=== PATIENT | female | born 1975 | race African-American/Black ===

== ENCOUNTER 2016-08-12 00:26 | Inpatient (IN) | payer MEDICAID, OTHER ==
[~2016-08-12] VITALS: Ht 165.1 cm; Wt 113.4 kg
[2016-08-12] MEDS ORDERED: SODIUM CHLORIDE 0.9% 1,000 ML IV ONE (02:10)
[2016-08-12] MEDS ORDERED: ONDANSETRON HCL 4MG/2ML VIAL IV STA (02:10)
[2016-08-12] MEDS ORDERED: MORPHINE SULFATE 4 MG/ML CPJ (NOT FOR IM USE) IV STA (02:10)
[2016-08-12 03:13] LABS: BASOPHILS % 0.5 % (0.0-2.0); EOSINOPHILS % 0.7 % (0.0-5.0); HEMOGLOBIN. 12.7 g/dL (12.0-16.0); LYMPHOCYTES % 19.7 % (20.0-50.0); MEAN CORPUSCULAR VOLUME 73.3 fL (81.0-99.0); MEAN PLATELET VOLUME 9.4 fl (7.4-10.4); MONOCYTES % 4.2 % (2.0-8.0); NEUTROPHILS % 74.9 % (40.0-76.0); PLATELET 202 x1000/uL (130-400); RED BLOOD CELL COUNT 5.32 mill/uL (4.2-5.4); RED CELL DISTRIBUTION WIDTH 15.9 % (11.6-14.6)
[2016-08-12 03:16] LABS: PROTHROMBIN TIME 10.8 sec
[2016-08-12 03:19] LABS: HCG SCREEN NEGATIVE
[2016-08-12 03:25] LABS: CARBON DIOXIDE 27 mEq/L (21-32); CHLORIDE 110 mEq/L (98-107)
[2016-08-12 04:25] LABS: CLARITY URINE TURBID (CLEAR); COLOR URINE ORANGE (YELLOW); KETONES URINE NEGATIVE (NEGATIVE); LEUKOCYTE ESTERASE URINE 1+ (NEGATIVE); NITRITE URINE NEGATIVE (NEGATIVE); OCCULT BLOOD URINE 3+ (NEGATIVE); PROTEIN URINE 1+ (NEGATIVE); SPECIFIC GRAVITY URINE 1.027 (1.005-1.030)
[2016-08-12] MEDS ORDERED: MORPHINE SULFATE 4 MG/ML CPJ (NOT FOR IM USE) IV ONE (04:45)
[2016-08-12] MEDS ORDERED: METRONIDAZOLE 500 MG PREMIX 100 ML IV ONE (05:00)
[2016-08-12] MEDS ORDERED: CEFTRIAXONE 2 G PREMIX 50 ML IV ONE (05:00)
[2016-08-12] MEDS ORDERED: TAMSULOSIN HCL 0.4MG SR CAPSULE PO ONE (06:00)
[2016-08-12] MEDS ORDERED: NAPR-679 (09:40)
[2016-08-12] MEDS ORDERED: MORPHINE SULFATE 4 MG/ML CPJ (NOT FOR IM USE) IV SCH (10:30)
[2016-08-12] MEDS ORDERED: MORPHINE SULFATE 4 MG/ML CPJ (NOT FOR IM USE) IV PRN ×2 (10:45→12:00)
[2016-08-12] MEDS ORDERED: IPRATROPIUM/ALBUTEROL 0.5-3(2.5)MG/3ML NEB INH PRN (11:15)
[2016-08-12] MEDS ORDERED: ACETAMINOPHEN 325MG TABLET PO PRN (11:15)
[2016-08-12] MEDS ORDERED: CLONIDINE 0.1MG TABLET PO PRN (11:15)
[2016-08-12] MEDS ORDERED: ONDANSETRON HCL 4MG/2ML VIAL IV PRN (11:15)
[2016-08-12] MEDS ORDERED: DIPHENHYDRAMINE 50MG/ML VIAL IV PRN (11:15)
[2016-08-12] MEDS ORDERED: SODIUM CHLORIDE 0.9% 10ML VIAL ONE (12:40)
[2016-08-12] MEDS ORDERED: IOHEXOL-300 100 ML BOTTLE ONE (12:40)
[2016-08-12] MEDS: LEVOFLOXACIN 500MG PREMIX 100 ML IV SCH ×2 (13:00→15:18)
[2016-08-12] MEDS: METRONIDAZOLE 500 MG PREMIX 100 ML IV SCH ×2 (14:00→22:00)
[2016-08-12] MEDS ORDERED: DOCU-150 PO (15:54)
[2016-08-12] MEDS ORDERED: CIPR-213 PO (15:54)
[2016-08-12] MEDS ORDERED: METR500T4 PO (15:55)
[2016-08-12] MEDS ORDERED: METRONIDAZOLE 500MG TABLET PO NR (20:00)
[2016-08-12] MEDS ORDERED: LEVOFLOXACIN 500MG TABLET PO NR (21:00)
[2016-08-13] MEDS: METRONIDAZOLE 500 MG PREMIX 100 ML IV SCH (05:29)
[2016-08-13 06:08] LABS: BASOPHILS % 0.4 % (0.0-2.0); EOSINOPHILS % 1.8 % (0.0-5.0); HEMATOCRIT. 36.7 % (36.0-48.0); HEMOGLOBIN. 11.9 g/dL (12.0-16.0); LYMPHOCYTES % 33.9 % (20.0-50.0); MEAN CORPUSCULAR HEMOGLOBIN 23.8 pg (28.0-32.0); MEAN CORPUSCULAR VOLUME 73.4 fL (81.0-99.0); MEAN PLATELET VOLUME 9.6 fl (7.4-10.4); MONOCYTES % 4.5 % (2.0-8.0); NEUTROPHILS % 59.4 % (40.0-76.0); PLATELET 171 x1000/uL (130-400); RED BLOOD CELL COUNT 4.99 mill/uL (4.2-5.4); RED CELL DISTRIBUTION WIDTH 15.6 % (11.6-14.6)
[2016-08-13] MEDS ORDERED: METRONIDAZOLE 500MG TABLET PO SCH (06:30)
[2016-08-13 06:40] LABS: CARBON DIOXIDE 23 mEq/L (21-32); CHLORIDE 110 mEq/L (98-107)
[2016-08-13 06:42] LABS: HDL CHOLESTEROL 42 mg/dL (40-59); LDL CHOLESTEROL 61 mg/dL (5-100)
[2016-08-13] MEDS: HYDROCODONE/ACETAMINOPHEN 5/325MG TABLET PO PRN ×2 (07:38→12:18)
[2016-08-13] MEDS ORDERED: LEVOFLOXACIN 500MG TABLET PO SCH (11:00)
[2016-08-13 14:04] VITALS: BP 127/80
== END 2016-08-13 15:55 | disposition home or self-care (01) | DRG 244 ==
LOC: ER 00:26 → 6EST 05:13 → EDBEDREQTM 05:17 → EDBEDREQ 05:17 → ENRESERV 07:44
PROVIDERS: ADMIT Internal Medicine; ATTEND Internal Medicine
DX: K57.32 Diverticulitis of large intestine without perforation or abscess without bleeding (principal); N13.30 Unspecified hydronephrosis; N39.0 Urinary tract infection, site not specified; N23 Unspecified renal colic; Z98.84 Bariatric surgery status
CPT/HCPCS: 36415; 74177; 80053; 80061; 81001; 83605; 83690; 84703; 85025; 85610; 87040; 87086; 93005; 96361; 96365; 96367; 96375; 96376; 99285; A4216; C1893; J0696; J1956; J2270; J2405; J3490; J7030; J7040; Q9967

== ENCOUNTER 2016-11-20 09:00 | Inpatient (IN) | payer MEDICAID ==
[~2016-11-20] VITALS: Ht 165.1 cm; Wt 112.9 kg
[~2016-11-20 09:00] MED LIST: CIPR-213 PO; DOCU-150 PO; METR500T4 PO; NAPR-679
[2016-11-20] MEDS ORDERED: LACTATED RINGERS 1,000 ML IV SCH (10:20)
[2016-11-20] MEDS ORDERED: HYDR-4001 PO (10:31)
[2016-11-20 10:58] LABS: CLARITY URINE CLOUDY (CLEAR); COLOR URINE YELLOW (YELLOW); GLUCOSE URINE NEGATIVE (NEGATIVE); KETONES URINE NEGATIVE (NEGATIVE); LEUKOCYTE ESTERASE URINE NEGATIVE (NEGATIVE); NITRITE URINE NEGATIVE (NEGATIVE); OCCULT BLOOD URINE NEGATIVE (NEGATIVE); PROTEIN URINE NEGATIVE (NEGATIVE); SPECIFIC GRAVITY URINE 1.019 (1.005-1.030); UROBILINOGEN URINE 0.2 E.U./dL (0.2-1.0)
[2016-11-20] MEDS ORDERED: LIDOCAINE HCL 1% 20ML VIAL (Pyxis) INJ ONE ×2 (11:01→11:19)
[2016-11-20] MEDS ORDERED: BUPIVACAINE HCL/PF 0.5% (5MG/ML) 10ML ONE (11:01)
[2016-11-20 11:02] LABS: UCG SCREEN NEGATIVE
[2016-11-20 11:06] LABS: INR 1.1; PARTIAL THROMBOPLASTIN TIME 27.5 sec (23.4-31.0); PROTHROMBIN TIME 11.3 sec (9.4-11.6)
[2016-11-20] MEDS ORDERED: SUCCINYLCHOLINE CHLORIDE 200MG/10ML VIAL IV ONE (11:19)
[2016-11-20] MEDS ORDERED: PROPOFOL 200MG/20ML VIAL IV ONE ×2 (11:19→16:32)
[2016-11-20] MEDS ORDERED: FENTANYL CITRATE/PF 50MCG/ML 2ML VIAL ONE ×2 (11:20→12:46)
[2016-11-20] MEDS ORDERED: MIDAZOLAM HCL 2 MG/2 ML VIAL ONE (11:20)
[2016-11-20] MEDS ORDERED: CEFOXITIN SODIUM 2 G in DEXT 5% WATER 100 ML IV NR (11:33)
[2016-11-20] MEDS ORDERED: ROCURONIUM BROMIDE 10MG/ML VIAL 5ML IV ONE (12:23)
[2016-11-20] MEDS ORDERED: MEPERIDINE HCL/PF 25MG/ML CPJ IV PRN (12:45)
[2016-11-20] MEDS ORDERED: LABETALOL HCL 20MG/4ML CARPUJECT IV PRN (12:45)
[2016-11-20] MEDS ORDERED: ONDANSETRON HCL 4MG/2ML VIAL IV PRN (12:45)
[2016-11-20] MEDS ORDERED: HYDROMORPHONE HCL/PF 2MG/ML (OR) ONE (12:53)
[2016-11-20] MEDS ORDERED: MEDR150D9 IM (13:27)
[2016-11-20] MEDS ORDERED: SKIN ADHESIVE 0.7 GM EA TOP ONE (13:29)
[2016-11-20] MEDS ORDERED: METHYLENE BLUE 50 MG/10 ML AMP IV ONE (13:52)
[2016-11-20] MEDS ORDERED: NORMAL SALINE 0.9% 10 ML SYR ONE ×2 (15:47→15:52)
[2016-11-20] MEDS ORDERED: BACITRACIN 50,000 UNITS/VIAL ONE ×2 (15:47→15:52)
[2016-11-20] MEDS ORDERED: NEOSTIGMINE METHYLSULFATE 1MG/ML 10 ML VIAL ONE ×2 (16:32→16:35)
[2016-11-20] MEDS ORDERED: SODIUM CHLORIDE 0.9% 10ML VIAL ONE (16:32)
[2016-11-20] MEDS ORDERED: GLYCOPYRROLATE 0.2 MG/ML 2ML VIAL ONE (16:32)
[2016-11-20] MEDS: HYDROMORPHONE HCL/PF 2MG/ML CPJ IV PRN ×4 (17:35→23:46)
[2016-11-20 20:00] VITALS: BP 168/85
[2016-11-20] MEDS: FAMOTIDINE 20MG/2ML VIAL IV SCH (21:24)
[2016-11-20] MEDS: CEFOXITIN SODIUM 2 G in DEXT 5% WATER 100 ML IV SCH (21:54)
[2016-11-21] VITALS: BP 147/88
[2016-11-21] MEDS: HYDROMORPHONE HCL/PF 2MG/ML CPJ IV PRN ×5 (01:39→15:27)
[2016-11-21 04:00] VITALS: BP 140/81
[2016-11-21] MEDS: CEFOXITIN SODIUM 2 G in DEXT 5% WATER 100 ML IV SCH ×3 (05:41→21:53)
[2016-11-21 06:30] LABS: BASOPHILS % 0.2 % (0.0-2.0); HEMATOCRIT. 40.9 % (36.0-48.0); HEMOGLOBIN. 12.8 g/dL (12.0-16.0); LYMPHOCYTES % 10.9 % (20.0-50.0); MEAN CORPUSCULAR HEMOGLOBIN 23.4 pg (28.0-32.0); MEAN PLATELET VOLUME 9.4 fl (7.4-10.4); MONOCYTES % 5.9 % (2.0-8.0); PLATELET 229 x1000/uL (130-400); RED BLOOD CELL COUNT 5.46 mill/uL (4.2-5.4); RED CELL DISTRIBUTION WIDTH 15.2 % (11.6-14.6)
[2016-11-21 06:50] LABS: CARBON DIOXIDE 23 mEq/L (21-32); CHLORIDE 111 mEq/L (98-107)
[2016-11-21 08:00] VITALS: BP 135/82
[2016-11-21] MEDS: ENOXAPARIN 40MG/0.4ML SYR SUBCUT SCH ×2 (09:00→21:43)
[2016-11-21] MEDS ORDERED: ENOXAPARIN 40MG/0.4ML SYR SUBCUT SCH (09:00)
[2016-11-21] MEDS ORDERED: CEFOXITIN SODIUM 2 G in DEXT 5% WATER 100 ML IV SCH (09:00)
[2016-11-21] MEDS: FAMOTIDINE 20MG/2ML VIAL IV SCH ×2 (09:01→21:00)
[2016-11-21 12:00] VITALS: BP 137/90
[2016-11-21] MEDS: DIPHENHYDRAMINE 50MG/ML VIAL IV PRN (13:02)
[2016-11-21] MEDS ORDERED: CLONIDINE 0.1MG TABLET PO PRN (15:00)
[2016-11-21] MEDS: DEXT 5%/0.45% NACL KCL 20MEQ/L 1,000 ML IV SCH ×2 (15:27→21:53)
[2016-11-21] MEDS: DOCUSATE SODIUM 100MG CAPSULE PO SCH (19:45)
[2016-11-21] MEDS: HYDROMORPHONE HCL/PF 2MG/ML CPJ IM PRN (19:57)
[2016-11-21 20:00] VITALS: BP 157/85
[2016-11-21] MEDS: DIPHENHYDRAMINE 25MG CAPSULE PO PRN (21:42)
[2016-11-22] VITALS: BP 148/76
[2016-11-22] MEDS: HYDROMORPHONE HCL/PF 2MG/ML CPJ IM PRN ×2 (02:20→06:11)
[2016-11-22] MEDS: DIPHENHYDRAMINE 25MG CAPSULE PO PRN ×5 (02:20→22:17)
[2016-11-22] MEDS: CEFOXITIN SODIUM 2 G in DEXT 5% WATER 100 ML IV SCH ×3 (06:00→20:39)
[2016-11-22 07:16] LABS: BASOPHILS % 0.5 % (0.0-2.0); EOSINOPHILS % 0.7 % (0.0-5.0); HEMATOCRIT. 32.8 % (36.0-48.0); LYMPHOCYTES % 14.7 % (20.0-50.0); MEAN CORPUSCULAR HEMOGLOBIN 23.8 pg (28.0-32.0); MEAN CORPUSCULAR VOLUME 73.6 fL (81.0-99.0); MEAN PLATELET VOLUME 9.8 fl (7.4-10.4); MONOCYTES % 6.9 % (2.0-8.0); NEUTROPHILS % 77.2 % (40.0-76.0); PLATELET 163 x1000/uL (130-400); RED BLOOD CELL COUNT 4.46 mill/uL (4.2-5.4); RED CELL DISTRIBUTION WIDTH 14.9 % (11.6-14.6)
[2016-11-22 07:42] LABS: HEMOGLOBIN. 10.6 g/dL (12.0-16.0)
[2016-11-22 07:47] LABS: CARBON DIOXIDE 24 mEq/L (21-32); CHLORIDE 110 mEq/L (98-107)
[2016-11-22 08:00] VITALS: BP 114/61
[2016-11-22] MEDS ORDERED: LIDOCAINE HCL 1% 20ML VIAL (Pyxis) INJ ONE (08:19)
[2016-11-22] MEDS ORDERED: SODIUM BICARBONATE 4% (2.4MEQ) 5ML VIAL IV ONE (08:19)
[2016-11-22] MEDS: FAMOTIDINE 20MG/2ML VIAL IV SCH ×2 (09:13→20:29)
[2016-11-22] MEDS: DOCUSATE SODIUM 100MG CAPSULE PO SCH ×2 (09:13→17:15)
[2016-11-22] MEDS: ENOXAPARIN 40MG/0.4ML SYR SUBCUT SCH ×2 (09:14→20:29)
[2016-11-22] MEDS: HYDROMORPHONE HCL/PF 2MG/ML CPJ IV PRN ×4 (09:15→19:54)
[2016-11-22 12:00] VITALS: BP 130/77
[2016-11-22 16:00] VITALS: BP 133/78
[2016-11-22 20:00] VITALS: BP 141/82
[2016-11-22] MEDS: DEXT 5%/0.45% NACL KCL 20MEQ/L 1,000 ML IV SCH (20:29)
[2016-11-23] VITALS: BP 136/82
[2016-11-23] MEDS: HYDROMORPHONE HCL/PF 2MG/ML CPJ IV PRN ×5 (01:14→18:19)
[2016-11-23 04:00] VITALS: BP 140/78
[2016-11-23] MEDS: CEFOXITIN SODIUM 2 G in DEXT 5% WATER 100 ML IV SCH ×3 (04:44→20:51)
[2016-11-23] MEDS: DIPHENHYDRAMINE 25MG CAPSULE PO PRN ×4 (06:56→21:17)
[2016-11-23 08:00] VITALS: BP 148/93
[2016-11-23] MEDS: DOCUSATE SODIUM 100MG CAPSULE PO SCH ×2 (08:25→16:57)
[2016-11-23] MEDS: HYDROMORPHONE HCL/PF 2MG/ML CPJ IM PRN ×5 (08:25→21:17)
[2016-11-23] MEDS: FAMOTIDINE 20MG/2ML VIAL IV SCH ×2 (08:25→21:16)
[2016-11-23] MEDS: DEXT 5%/0.45% NACL KCL 20MEQ/L 1,000 ML IV SCH ×2 (08:26→16:57)
[2016-11-23] MEDS: ENOXAPARIN 40MG/0.4ML SYR SUBCUT SCH ×2 (08:26→21:36)
[2016-11-23 09:24] LABS: CARBON DIOXIDE 20 mEq/L (21-32); CHLORIDE 110 mEq/L (98-107)
[2016-11-23 11:01] LABS: BASOPHILS % 0.2 % (0.0-2.0); EOSINOPHILS % 1.7 % (0.0-5.0); HEMATOCRIT. 32.1 % (36.0-48.0); HEMOGLOBIN. 10.4 g/dL (12.0-16.0); LYMPHOCYTES % 10.2 % (20.0-50.0); MEAN CORPUSCULAR HEMOGLOBIN 23.7 pg (28.0-32.0); MEAN CORPUSCULAR VOLUME 73.3 fL (81.0-99.0); MEAN PLATELET VOLUME 9.2 fl (7.4-10.4); NEUTROPHILS % 82.9 % (40.0-76.0); PLATELET 165 x1000/uL (130-400); RED BLOOD CELL COUNT 4.37 mill/uL (4.2-5.4); RED CELL DISTRIBUTION WIDTH 14.9 % (11.6-14.6)
[2016-11-23 12:00] VITALS: BP 149/83
[2016-11-23 16:00] VITALS: BP 151/91
[2016-11-23] MEDS: DIPHENHYDRAMINE 50MG/ML VIAL IV PRN (21:36)
[2016-11-24] VITALS: BP 131/70
[2016-11-24] MEDS ORDERED: DIPHENHYDRAMINE 25MG CAPSULE PO PRN (00:30)
[2016-11-24] MEDS: DEXT 5%/0.45% NACL KCL 20MEQ/L 1,000 ML IV SCH ×3 (01:09→20:52)
[2016-11-24] MEDS: HYDROMORPHONE HCL/PF 2MG/ML CPJ IV PRN ×4 (01:14→20:57)
[2016-11-24] MEDS: DIPHENHYDRAMINE 50MG/ML VIAL IV PRN ×4 (01:15→21:16)
[2016-11-24] MEDS: METOCLOPRAMIDE HCL 10MG/2ML VIAL IV SCH ×4 (01:15→18:00)
[2016-11-24 04:00] VITALS: BP 138/81
[2016-11-24] MEDS: CEFOXITIN SODIUM 2 G in DEXT 5% WATER 100 ML IV SCH ×3 (04:35→20:52)
[2016-11-24] MEDS: HYDROMORPHONE HCL/PF 2MG/ML CPJ IM PRN ×2 (05:03→17:13)
[2016-11-24 06:43] LABS: BASOPHILS % 0.3 % (0.0-2.0); EOSINOPHILS % 2.7 % (0.0-5.0); HEMATOCRIT. 32.2 % (36.0-48.0); HEMOGLOBIN. 10.7 g/dL (12.0-16.0); LYMPHOCYTES % 17.9 % (20.0-50.0); MEAN CORPUSCULAR HEMOGLOBIN 24.2 pg (28.0-32.0); MEAN CORPUSCULAR VOLUME 72.9 fL (81.0-99.0); MEAN PLATELET VOLUME 9.2 fl (7.4-10.4); MONOCYTES % 7.7 % (2.0-8.0); NEUTROPHILS % 71.4 % (40.0-76.0); PLATELET 190 x1000/uL (130-400); RED BLOOD CELL COUNT 4.41 mill/uL (4.2-5.4); RED CELL DISTRIBUTION WIDTH 14.6 % (11.6-14.6)
[2016-11-24 07:19] LABS: CARBON DIOXIDE 24 mEq/L (21-32); CHLORIDE 107 mEq/L (98-107)
[2016-11-24 08:00] VITALS: BP 120/76
[2016-11-24] MEDS: BISACODYL 5MG TABLET PO SCH (08:44)
[2016-11-24] MEDS: DOCUSATE SODIUM 100MG CAPSULE PO SCH ×2 (08:44→16:36)
[2016-11-24] MEDS: FAMOTIDINE 20MG/2ML VIAL IV SCH ×2 (08:44→20:53)
[2016-11-24] MEDS: ENOXAPARIN 40MG/0.4ML SYR SUBCUT SCH (08:48)
[2016-11-24] MEDS: HYDROCORTISONE 1% CREAM 30GM TOP PRN (11:34)
[2016-11-24 12:00] VITALS: BP 122/74
[2016-11-24 16:03] VITALS: BP 161/95
[2016-11-24 20:00] VITALS: BP 140/80
[2016-11-24] MEDS: ENOXAPARIN 30MG/0.3ML SYR SUBCUT SCH (20:53)
[2016-11-25] MEDS: HYDROMORPHONE HCL/PF 2MG/ML CPJ IV PRN ×3 (02:26→08:59)
[2016-11-25] MEDS: HYDROCORTISONE 1% CREAM 30GM TOP PRN ×2 (02:39→18:19)
[2016-11-25 04:00] VITALS: BP 113/76
[2016-11-25] MEDS: CEFOXITIN SODIUM 2 G in DEXT 5% WATER 100 ML IV SCH ×3 (04:28→20:06)
[2016-11-25] MEDS: METOCLOPRAMIDE HCL 10MG/2ML VIAL IV SCH ×2 (06:00)
[2016-11-25] MEDS: DEXT 5%/0.45% NACL KCL 20MEQ/L 1,000 ML IV SCH ×2 (06:19→18:20)
[2016-11-25 08:00] VITALS: BP 117/68
[2016-11-25] MEDS: FAMOTIDINE 20MG/2ML VIAL IV SCH ×2 (08:57→20:08)
[2016-11-25] MEDS: DOCUSATE SODIUM 100MG CAPSULE PO SCH ×2 (08:58→17:53)
[2016-11-25] MEDS: BISACODYL 5MG TABLET PO SCH (08:58)
[2016-11-25] MEDS: ENOXAPARIN 30MG/0.3ML SYR SUBCUT SCH ×2 (08:59→20:08)
[2016-11-25] MEDS: DIPHENHYDRAMINE 50MG/ML VIAL IV PRN (11:18)
[2016-11-25 12:00] VITALS: BP 131/78
[2016-11-25] MEDS: METOCLOPRAMIDE HCL 10MG TABLET PO SCH ×2 (12:50→17:53)
[2016-11-25] MEDS: HYDROMORPHONE HCL/PF 2MG/ML CPJ IM PRN ×2 (12:51→17:56)
[2016-11-25 16:00] VITALS: BP 146/89
[2016-11-25 20:00] VITALS: BP 142/83
[2016-11-26] VITALS: BP 131/70
[2016-11-26 04:00] VITALS: BP 139/81
[2016-11-26] MEDS: CEFOXITIN SODIUM 2 G in DEXT 5% WATER 100 ML IV SCH ×3 (04:00→20:55)
[2016-11-26] MEDS: HYDROMORPHONE HCL/PF 2MG/ML CPJ IM PRN ×2 (05:04→12:29)
[2016-11-26] MEDS: METOCLOPRAMIDE HCL 10MG TABLET PO SCH ×4 (05:19→18:00)
[2016-11-26 07:11] LABS: BASOPHILS % 0.4 % (0.0-2.0); EOSINOPHILS % 2.3 % (0.0-5.0); HEMATOCRIT. 30.5 % (36.0-48.0); HEMOGLOBIN. 10.2 g/dL (12.0-16.0); LYMPHOCYTES % 12.1 % (20.0-50.0); MEAN CORPUSCULAR HEMOGLOBIN 24.2 pg (28.0-32.0); MEAN CORPUSCULAR VOLUME 72.7 fL (81.0-99.0); MONOCYTES % 7.4 % (2.0-8.0); NEUTROPHILS % 77.8 % (40.0-76.0); PLATELET 196 x1000/uL (130-400); RED BLOOD CELL COUNT 4.19 mill/uL (4.2-5.4)
[2016-11-26 07:55] LABS: CARBON DIOXIDE 24 mEq/L (21-32); CHLORIDE 107 mEq/L (98-107)
[2016-11-26 08:00] VITALS: BP 134/74
[2016-11-26] MEDS: BISACODYL 5MG TABLET PO SCH (09:00)
[2016-11-26] MEDS: DOCUSATE SODIUM 100MG CAPSULE PO SCH ×2 (09:00→17:00)
[2016-11-26] MEDS: HYDROCORTISONE 1% CREAM 30GM TOP PRN (09:02)
[2016-11-26] MEDS: FAMOTIDINE 20MG/2ML VIAL IV SCH ×2 (09:04→20:55)
[2016-11-26] MEDS: ENOXAPARIN 30MG/0.3ML SYR SUBCUT SCH ×2 (09:05→20:57)
[2016-11-26 12:00] VITALS: BP 157/93
[2016-11-26] MEDS: HYDROMORPHONE HCL/PF 2MG/ML CPJ IV PRN (19:00)
[2016-11-26 20:00] VITALS: BP 118/75
[2016-11-27] VITALS: BP 121/73
[2016-11-27] MEDS: HYDROMORPHONE HCL/PF 2MG/ML CPJ IV PRN ×3 (01:07→21:30)
[2016-11-27 04:00] VITALS: BP 145/85
[2016-11-27] MEDS: CEFOXITIN SODIUM 2 G in DEXT 5% WATER 100 ML IV SCH ×3 (04:05→20:34)
[2016-11-27 08:00] VITALS: BP 125/72
[2016-11-27] MEDS: FAMOTIDINE 20MG/2ML VIAL IV SCH ×2 (08:51→20:34)
[2016-11-27] MEDS: ENOXAPARIN 30MG/0.3ML SYR SUBCUT SCH ×2 (08:55→21:00)
[2016-11-27 12:00] VITALS: BP 135/71
[2016-11-27 16:00] VITALS: BP 130/83
[2016-11-27 20:00] VITALS: BP 129/68
[2016-11-28] VITALS: BP 130/78
[2016-11-28] MEDS: CEFOXITIN SODIUM 2 G in DEXT 5% WATER 100 ML IV SCH ×3 (03:56→21:10)
[2016-11-28] MEDS: HYDROMORPHONE HCL/PF 2MG/ML CPJ IV PRN ×3 (06:32→21:12)
[2016-11-28 08:00] VITALS: BP 129/75
[2016-11-28] MEDS: ENOXAPARIN 30MG/0.3ML SYR SUBCUT SCH ×2 (09:00→21:12)
[2016-11-28] MEDS: FAMOTIDINE 20MG/2ML VIAL IV SCH ×2 (09:34→21:10)
[2016-11-28] MEDS ORDERED: LIDOCAINE HCL 1% 20ML VIAL (Pyxis) INJ ONE ×2 (10:20→18:45)
[2016-11-28] MEDS ORDERED: BUPIVACAINE HCL/PF 0.5% (5MG/ML) 10ML ONE (10:20)
[2016-11-28] MEDS ORDERED: HYDROCORTISONE 1% CREAM 30GM TOP PRN (11:00)
[2016-11-28] MEDS ORDERED: NORMAL SALINE 0.9% 10 ML SYR ONE ×2 (11:24→18:11)
[2016-11-28] MEDS ORDERED: BACITRACIN 50,000 UNITS/VIAL ONE ×2 (11:25→18:10)
[2016-11-28 12:00] VITALS: BP 132/79
[2016-11-28 16:00] VITALS: BP 128/79
[2016-11-28] MEDS ORDERED: BACITRACIN ZINC 15GM TUBE TOP ONE (18:11)
[2016-11-28] MEDS ORDERED: ROCURONIUM BROMIDE 10MG/ML VIAL 5ML IV ONE (18:45)
[2016-11-28] MEDS ORDERED: SUCCINYLCHOLINE CHLORIDE 200MG/10ML VIAL IV ONE (18:45)
[2016-11-28] MEDS ORDERED: DEXAMETHASONE 4MG/ML 1ML VIAL ONE (18:45)
[2016-11-28] MEDS ORDERED: PROPOFOL 200MG/20ML VIAL IV ONE (18:45)
[2016-11-28] MEDS ORDERED: EPHEDRINE SULFATE 50MG/ML VIAL ONE (18:45)
[2016-11-28] MEDS ORDERED: FENTANYL CITRATE/PF 50MCG/ML 2ML VIAL ONE (18:48)
[2016-11-28] MEDS ORDERED: MIDAZOLAM HCL 2 MG/2 ML VIAL ONE ×3 (19:00→19:08)
[2016-11-28] MEDS ORDERED: DIPHENHYDRAMINE 50MG/ML VIAL ONE (19:02)
[2016-11-28] MEDS ORDERED: DIATR MEGLU/DIATRIZOATE SOLN 30ML PO SCH (19:30)
[2016-11-28 20:30] VITALS: BP 157/84
[2016-11-29] VITALS: BP 146/91
[2016-11-29] MEDS: DIPHENHYDRAMINE 50MG/ML VIAL IV PRN (00:19)
[2016-11-29 04:00] VITALS: BP 126/76
[2016-11-29 06:54] LABS: BASOPHILS % 0.3 % (0.0-2.0); EOSINOPHILS % 3.8 % (0.0-5.0); HEMATOCRIT. 30.2 % (36.0-48.0); LYMPHOCYTES % 17.7 % (20.0-50.0); MEAN CORPUSCULAR HEMOGLOBIN 23.6 pg (28.0-32.0); MEAN CORPUSCULAR VOLUME 71.4 fL (81.0-99.0); MEAN PLATELET VOLUME 7.9 fl (7.4-10.4); MONOCYTES % 8.3 % (2.0-8.0); NEUTROPHILS % 69.9 % (40.0-76.0); PLATELET 253 x1000/uL (130-400); RED BLOOD CELL COUNT 4.23 mill/uL (4.2-5.4); RED CELL DISTRIBUTION WIDTH 13.9 % (11.6-14.6)
[2016-11-29 07:42] LABS: CARBON DIOXIDE 25 mEq/L (21-32); CHLORIDE 104 mEq/L (98-107)
[2016-11-29 08:00] VITALS: BP 134/74
[2016-11-29] MEDS: FAMOTIDINE 20MG/2ML VIAL IV SCH (08:35)
[2016-11-29] MEDS: HYDROMORPHONE HCL/PF 2MG/ML CPJ IV PRN (08:35)
[2016-11-29] MEDS: ENOXAPARIN 30MG/0.3ML SYR SUBCUT SCH (08:36)
[2016-11-29] MEDS ORDERED: HYDROCODONE/ACETAMINOPHEN 5/325MG TABLET PO PRN (13:30)
[2016-11-29 14:50] VITALS: BP 143/77
[2016-11-29] MEDS ORDERED: ENOXAPARIN 40MG/0.4ML SYR SUBCUT SCH (21:00)
== END 2016-11-29 17:06 | disposition home health service (06) | DRG 221 ==
LOC: OR 09:00 → 6EST 19:35
PROVIDERS: ADMIT Internal Medicine; ATTEND Internal Medicine
PROC: 0DTN0ZZ Resection of Sigmoid Colon, Open Approach (ICD-10-PCS; principal; 2016-11-20 11:00)
PROC: 02HV33Z Insertion of Infusion Device into Superior Vena Cava, Percutaneous Approach (ICD-10-PCS; 2016-11-22)
PROC: B548ZZA Ultrasonography of Superior Vena Cava, Guidance (ICD-10-PCS; 2016-11-22)
PROC: 0J980ZZ Drainage of Abdomen Subcutaneous Tissue and Fascia, Open Approach (ICD-10-PCS; 2016-11-28)
DX: K57.32 Diverticulitis of large intestine without perforation or abscess without bleeding (principal); R65.11 Systemic inflammatory response syndrome (SIRS) of non-infectious origin with acute organ dysfunction; E87.8 Other disorders of electrolyte and fluid balance, not elsewhere classified; Z68.41 Body mass index [BMI] 40.0-44.9, adult; K56.7 Ileus, unspecified; E83.51 Hypocalcemia; E66.01 Morbid (severe) obesity due to excess calories; J98.11 Atelectasis; I51.7 Cardiomegaly; R20.2 Paresthesia of skin; R73.9 Hyperglycemia, unspecified; B95.62 Methicillin resistant Staphylococcus aureus infection as the cause of diseases classified elsewhere; K52.9 Noninfective gastroenteritis and colitis, unspecified; R16.0 Hepatomegaly, not elsewhere classified; L02.211 Cutaneous abscess of abdominal wall
CPT/HCPCS: 36415; 36569; 71010; 74177; 76937; 80048; 81001; 81025; 83036; 85025; 85610; 85730; 87040; 87070; 87075; 87077; 87086; 87186; 87205; 88304; 88307; 93971; 97116; 97162; 97530; 97535; A4216; C1725; J0171; J0330; J0694; J1100; J1170; J1200; J1650; J2175; J2250; J2405; J2704; J2710; J2765; J3010; J3490; J7030; J7050; J7060; J7120; J8597; Q0163; Q9963; Q9968